=== PATIENT | male | born 1955 | race Caucasian/White ===

== ENCOUNTER 2023-06-10 10:17 | Emergency (ER) | payer MEDICARE ==
[2023-06-10 10:55] LABS: BASOPHILS ABSOLUTE AUTO 0.03 K/uL (0.00-0.10); BASOPHILS PERCENT AUTO 0.3 % (0.1-1.3); EOSINOPHILS ABSOLUTE AUTO 0.01 K/uL (0.00-0.40); EOSINOPHILS PERCENT AUTO 0.1 % (0.0-5.4); HEMATOCRIT 40.9 % (38.4-49.7); IMMATURE GRAN ABSOLUTE AUTO 0.03 K/uL (0.00-0.23); IMMATURE GRAN PERCENT AUTO 0.3 % (0.0-0.7); LYMPHOCYTES ABSOLUTE AUTO 0.53 K/uL (0.8-3.3); LYMPHOCYTES PERCENT AUTO 5.2 % (11.4-47.7); MEAN CORPUSCULAR HGB CONC 34.2 g/dL (31.6-35.5); MEAN CORPUSCULAR VOLUME 93.4 fL (81.4-99.0); MONOCYTES ABSOLUTE AUTO 0.66 K/uL (0.20-0.90); MONOCYTES PERCENT AUTO 6.5 % (3.3-12.6); NEUTROPHILS ABSOLUTE AUTO 8.88 K/uL (1.0-7.6); NEUTROPHILS PERCENT AUTO 87.6 % (40.0-78.1); PLATELET COUNT,PLT 222 K/uL (130-375); RED BLOOD CELL COUNT 4.38 M/uL (4.14-5.76); WHITE BLOOD CELL COUNT,WBC 10.1 K/uL (3.2-11.0)
[2023-06-10 11:20] LABS: CALCIUM 9.1 mg/dL (8.5-10.1); CREATININE 1.4 mg/dL (0.8-1.3); EST CRCL DRUG DOSING (CG) 49.52 mL/min
[2023-06-10 11:23] LABS: TROPONIN I HIGH SENSITIVITY 196.6 pg/mL (<=60.3)
[2023-06-10] MEDS ORDERED: Sodium Chloride 0.9% 1,000 ML IV ONE (11:43)
[2023-06-10] MEDS ORDERED: Iopamidol 612 MG/ML 100 ML Bottle IV SCH (12:00)
[2023-06-10] MEDS ORDERED: Sodium Chloride 0.9% 50 ML IV SCH (12:00)
[2023-06-10] MEDS ORDERED: Aspirin 81 MG Tab.Chew PO ONE (13:45)
[2023-06-10 14:51] LABS: APPEARANCE,URINE CLOUDY (CLEAR); BILIRUBIN,URINE NEGATIVE (NEGATIVE); COLOR,URINE YELLOW (YELLOW); GLUCOSE,URINE NEGATIVE (NEGATIVE); KETONES,URINE TRACE mg/dL (NEGATIVE); LEUKOCYTE ESTERASE,URINE NEGATIVE (NEGATIVE); NITRITE,URINE NEGATIVE (NEGATIVE); OCCULT BLOOD,URINE MODERATE (NEGATIVE); PH,URINE 5.5 (5.0-8.0); PROTEIN,URINE NEGATIVE (NEGATIVE); UROBILINOGEN,URINE 0.2 EU/dL (0.2-1.0)
[2023-06-10 14:59] LABS: AMORPHOUS SEDIMENT,URINE NOT SEEN; BACTERIA,URINE FEW; EPITHELIAL CELLS,URINE FEW; MUCUS,URINE RARE; RBC,URINE 20-30 (0-5); WBC,URINE 0-5 (0-5)
== END 2023-06-10 15:01 ==
LOC: JP.ED 10:17
DX: K92.2 Gastrointestinal hemorrhage, unspecified (principal); R33.9 Retention of urine, unspecified; R79.89 Other specified abnormal findings of blood chemistry
CPT/HCPCS: 36415; 51702; 71260; 74177; 80048; 81001; 83605; 84484; 85025; 86140; 93005; 96360; 99285; A9270; J3490; J7030; Q9967

== ENCOUNTER 2023-06-21 19:03 | Emergency (ER) | payer MEDICARE ==
[2023-06-21 19:31] LABS: APPEARANCE,URINE SLIGHTLY CLOUDY (CLEAR); BILIRUBIN,URINE NEGATIVE (NEGATIVE); COLOR,URINE YELLOW (YELLOW); GLUCOSE,URINE NEGATIVE (NEGATIVE); KETONES,URINE NEGATIVE (NEGATIVE); LEUKOCYTE ESTERASE,URINE TRACE (NEGATIVE); NITRITE,URINE POSITIVE (NEGATIVE); OCCULT BLOOD,URINE MODERATE (NEGATIVE); PH,URINE 5.5 (5.0-8.0); PROTEIN,URINE NEGATIVE (NEGATIVE); UROBILINOGEN,URINE 0.2 EU/dL (0.2-1.0)
[2023-06-21 19:38] LABS: AMORPHOUS SEDIMENT,URINE NOT SEEN; BACTERIA,URINE MANY; EPITHELIAL CELLS,URINE RARE; MUCUS,URINE NOT SEEN
== END 2023-06-21 20:40 | disposition home or self-care (01) ==
LOC: JP.ED 19:03
DX: N40.1 Benign prostatic hyperplasia with lower urinary tract symptoms (principal); R33.9 Retention of urine, unspecified; R97.20 Elevated prostate specific antigen [PSA]; N30.00 Acute cystitis without hematuria; Z79.899 Other long term (current) drug therapy
CPT/HCPCS: 51702; 81001; 87086; 87088; 87186; 99283

== ENCOUNTER 2023-07-24 12:20 | Emergency (ER) | payer MEDICARE | END 2023-07-24 14:44 | disposition home or self-care (01) | LOC: JP.ED 12:20 | DX: T83.038A Leakage of other urinary catheter, initial encounter (principal); F17.210 Nicotine dependence, cigarettes, uncomplicated; Z79.899 Other long term (current) drug therapy | CPT/HCPCS: 99282; 99283 ==

== ENCOUNTER 2023-10-29 09:02 | Emergency (ER) | payer MEDICARE, MEDICAID ==
[2023-10-29] MEDS: Lactated Ringers 1,000 ML IV SCH (10:00)
[2023-10-29] MEDS: Ondansetron 4 MG/2 ML SDV IVPUSH ONE (10:01)
[2023-10-29] MEDS: fentaNYL 100 MCG/2 ML SDV IVPUSH ONE (10:02)
[2023-10-29 10:10] LABS: BASOPHILS ABSOLUTE AUTO 0.03 K/uL (0.00-0.10); BASOPHILS PERCENT AUTO 0.2 % (0.1-1.3); EOSINOPHILS ABSOLUTE AUTO 0.32 K/uL (0.00-0.40); EOSINOPHILS PERCENT AUTO 2.5 % (0.0-5.4); HEMATOCRIT 38.6 % (38.4-49.7); IMMATURE GRAN ABSOLUTE AUTO 0.07 K/uL (0.00-0.23); IMMATURE GRAN PERCENT AUTO 0.6 % (0.0-0.7); LYMPHOCYTES ABSOLUTE AUTO 0.43 K/uL (0.8-3.3); LYMPHOCYTES PERCENT AUTO 3.4 % (11.4-47.7); MEAN CORPUSCULAR HEMOGLOBIN 31.6 pg (31.6-35.5); MEAN CORPUSCULAR HGB CONC 33.7 g/dL (31.6-35.5); MEAN CORPUSCULAR VOLUME 93.9 fL (81.4-99.0); MONOCYTES ABSOLUTE AUTO 0.97 K/uL (0.20-0.90); MONOCYTES PERCENT AUTO 7.7 % (3.3-12.6); NEUTROPHILS PERCENT AUTO 85.6 % (40.0-78.1); PLATELET COUNT,PLT 280 K/uL (130-375); RED BLOOD CELL COUNT 4.11 M/uL (4.14-5.76); WHITE BLOOD CELL COUNT,WBC 12.6 K/uL (3.2-11.0)
[2023-10-29 10:31] LABS: A/G RATIO 0.5 (1.2-2.2); ALANINE AMINOTRANSFERASE,ALT 13 U/L (12-78); ALBUMIN 2.4 g/dL (3.4-5.0); ALKALINE PHOSPHATASE 76 U/L (46-116); ASPARTATE AMNIOTRANSFERASE,AST 12 U/L (15-37); BILIRUBIN TOTAL 0.7 mg/dL (0.2-1.0); BLOOD UREA NITROGEN,BUN 21 mg/dL (7-18); CALCIUM 8.9 mg/dL (8.5-10.1); CARBON DIOXIDE,CO2 28 mmol/L (21-32); CHLORIDE,CL 100 mmol/L (100-108); CREATININE 1.1 mg/dL (0.8-1.3); EST CRCL DRUG DOSING (CG) 56.93 mL/min; ESTIMATED GFR 73 mL/min (>60); GLUCOSE RANDOM 125 mg/dL (74-106); POTASSIUM,K 4.3 mmol/L (3.6-5.2); PROTEIN TOTAL,TP 7.1 g/dL (6.4-8.2); SODIUM,NA 137 mmol/L (140-148)
[2023-10-29 10:33] LABS: LACTIC ACID 0.9 mmol/L (0.4-2.0)
[2023-10-29 10:40] LABS: ANION GAP 13.3 mmol/L (5.0-14.0); C-REACTIVE PROTEIN 25.52 mg/dL (<0.50)
[2023-10-29] MEDS: HYDROmorphone 1 MG/ML Syringe IVPUSH ONE (11:00)
[2023-10-29] MEDS: Sodium Chloride 0.9% 10 ML Syringe FLUSH PRN (11:35)
[2023-10-29] MEDS: Sodium Chloride 0.9% 80 ML IV SCH (11:35)
[2023-10-29] MEDS: Iopamidol 612 MG/ML 100 ML Bottle IV PRN (11:35)
[2023-10-29 11:55] LABS: APPEARANCE,URINE CLOUDY (CLEAR); BILIRUBIN,URINE NEGATIVE (NEGATIVE); COLOR,URINE YELLOW (YELLOW); GLUCOSE,URINE NEGATIVE (NEGATIVE); KETONES,URINE NEGATIVE (NEGATIVE); LEUKOCYTE ESTERASE,URINE TRACE (NEGATIVE); NITRITE,URINE NEGATIVE (NEGATIVE); OCCULT BLOOD,URINE LARGE (NEGATIVE); PH,URINE 7.5 (5.0-8.0); PROTEIN,URINE 100 mg/dL (NEGATIVE); UROBILINOGEN,URINE 0.2 EU/dL (0.2-1.0)
[2023-10-29 12:03] LABS: AMORPHOUS SEDIMENT,URINE FEW; BACTERIA,URINE MANY; EPITHELIAL CELLS,URINE FEW; MUCUS,URINE MODERATE; RBC,URINE 30-40 (0-5); WBC,URINE 40-50 (0-5)
[2023-10-29 12:14] LABS: CORONAVIRUS COVID-19 NAA NEGATIVE (NEGATIVE); INFLUENZA A NAA NEGATIVE (NEGATIVE); INFLUENZA B NAA NEGATIVE (NEGATIVE); RESPIRATORY SYNCYTIAL VIR NAA NEGATIVE (NEGATIVE)
[2023-10-29] MEDS: HYDROmorphone 0.5 MG/0.5 ML Syringe IVPUSH ONE (12:16)
[2023-10-29] MEDS: LORazepam 2 MG/ML SDV IVPUSH ONE ×2 (12:19→14:46)
[2023-10-29] MEDS: Acetaminophen 325 MG Tab PO ONE (12:21)
[2023-10-29] MEDS: Lidocaine 4% Top Soln 50 ML Bottle MUCMEM ONE (12:28)
[2023-10-29] MEDS ORDERED: Lactated Ringers 1,000 ML IV ONE (12:39)
[2023-10-29] MEDS ORDERED: levETIRAcetam 500 MG/5 ML SDV IVPUSH ONE (14:05)
[2023-10-29] MEDS: levETIRAcetam in NaCl (iso-os) 1,500 MG in Premix Bag 100 BAG IV ONE (14:36)
[2023-10-29] MEDS: cefTRIAXone 1 GM in Sodium Chloride 0.9% 50 ML IV SCH (14:37)
== END 2023-10-29 15:00 ==
LOC: JP.ED 09:02
DX: G89.18 Other acute postprocedural pain (principal); K56.7 Ileus, unspecified; Z79.899 Other long term (current) drug therapy
CPT/HCPCS: 0241U; 36415; 43752; 71045; 74018; 74177; 80053; 81001; 83605; 84145; 85025; 86140; 87040; 96374; 96375; 96376; 99285; A9270; J1170; J2060; J2405; J3010; J3490; J7120; Q9967

== ENCOUNTER 2024-02-06 09:54 | Inpatient (IN) | payer MEDICARE, MEDICAID ==
[2024-02-06 10:47] LABS: BASOPHILS ABSOLUTE AUTO 0.07 K/uL (0.00-0.10); BASOPHILS PERCENT AUTO 0.8 % (0.1-1.3); EOSINOPHILS ABSOLUTE AUTO 0.14 K/uL (0.00-0.40); EOSINOPHILS PERCENT AUTO 1.7 % (0.0-5.4); HEMATOCRIT 31.5 % (38.4-49.7); HEMOGLOBIN 10.3 g/dL (12.9-16.9); IMMATURE GRAN ABSOLUTE AUTO 0.04 K/uL (0.00-0.23); IMMATURE GRAN PERCENT AUTO 0.5 % (0.0-0.7); LYMPHOCYTES ABSOLUTE AUTO 0.91 K/uL (0.8-3.3); MEAN CORPUSCULAR HEMOGLOBIN 30.9 pg (31.6-35.5); MEAN CORPUSCULAR HGB CONC 32.7 g/dL (31.6-35.5); MEAN CORPUSCULAR VOLUME 94.6 fL (81.4-99.0); MONOCYTES ABSOLUTE AUTO 0.72 K/uL (0.20-0.90); MONOCYTES PERCENT AUTO 8.7 % (3.3-12.6); NEUTROPHILS ABSOLUTE AUTO 6.38 K/uL (1.0-7.6); NEUTROPHILS PERCENT AUTO 77.3 % (40.0-78.1); PLATELET COUNT,PLT 282 K/uL (130-375); RED BLOOD CELL COUNT 3.33 M/uL (4.14-5.76); WHITE BLOOD CELL COUNT,WBC 8.3 K/uL (3.2-11.0)
[2024-02-06 11:08] LABS: A/G RATIO 0.6 (1.2-2.2); ALANINE AMINOTRANSFERASE,ALT 15 U/L (12-78); ALBUMIN 2.7 g/dL (3.4-5.0); ALKALINE PHOSPHATASE 80 U/L (46-116); ASPARTATE AMNIOTRANSFERASE,AST 14 U/L (15-37); BILIRUBIN TOTAL 0.3 mg/dL (0.2-1.0); BLOOD UREA NITROGEN,BUN 18 mg/dL (7-18); CALCIUM 8.7 mg/dL (8.5-10.1); CARBON DIOXIDE,CO2 26 mmol/L (21-32); CHLORIDE,CL 104 mmol/L (100-108); CREATININE 1.2 mg/dL (0.8-1.3); EST CRCL DRUG DOSING (CG) 52.18 mL/min; ESTIMATED GFR 65 mL/min (>60); GLUCOSE RANDOM 83 mg/dL (74-106); POTASSIUM,K 3.8 mmol/L (3.6-5.2); PROTEIN TOTAL,TP 7.2 g/dL (6.4-8.2); SODIUM,NA 138 mmol/L (140-148)
[2024-02-06 11:10] LABS: ANION GAP 11.8 mmol/L (5.0-14.0)
[2024-02-06] MEDS: Ketorolac 30 MG/ML SDV IM ONE (11:26)
[2024-02-06] MEDS: fentaNYL 100 MCG/2 ML SDV IM ONE (12:30)
[2024-02-06] MEDS: HYDROmorphone 0.5 MG/0.5 ML Syringe IVPUSH ONE (15:11)
[2024-02-06] MEDS: Sodium Chloride 0.9% 10 ML Syringe FLUSH PRN (15:17)
[2024-02-06] MEDS ORDERED: Ondansetron 4 MG Tab.DIS PO PRN (16:17)
[2024-02-06] MEDS ORDERED: Morphine 2 MG/ML SYRINGE IVPUSH PRN (16:17)
[2024-02-06] MEDS ORDERED: Sennosides/Docusate Sodium 50-8.6 MG Tab PO PRN (16:17)
[2024-02-06] MEDS ORDERED: Zolpidem 5 MG Tab PO PRN (16:17)
[2024-02-06 16:34] LABS: MAGNESIUM 1.9 mg/dL (1.8-2.4); PHOSPHORUS 2.8 mg/dL (2.5-4.9)
[2024-02-06] MEDS: Lactated Ringers 1,000 ML IV SCH (17:28)
[2024-02-06] MEDS ORDERED: Ketorolac 30 MG/ML SDV IM PRN (18:00)
[2024-02-06] MEDS: Cyclobenzaprine 10 MG Tab PO PRN (20:08)
[2024-02-06] MEDS: Acetaminophen 325 MG Tab PO PRN (20:08)
[2024-02-06] MEDS: levETIRAcetam 250 MG Tab PO SCH (20:08)
[2024-02-06] MEDS ORDERED: Non-Formulary Medication 1 Each (Levetiracetam [Keppra] 500 MG Tablet) PO SCH (21:00)
[2024-02-07] MEDS: Acetaminophen/oxyCODONE 325-5 MG Tab PO PRN (03:48)
[2024-02-07 04:16] LABS: HEMATOCRIT 33.7 % (38.4-49.7); HEMOGLOBIN 10.9 g/dL (12.9-16.9); MEAN CORPUSCULAR HEMOGLOBIN 30.5 pg (31.6-35.5); MEAN CORPUSCULAR HGB CONC 32.3 g/dL (31.6-35.5); MEAN CORPUSCULAR VOLUME 94.4 fL (81.4-99.0); RED BLOOD CELL COUNT 3.57 M/uL (4.14-5.76); WHITE BLOOD CELL COUNT,WBC 7.1 K/uL (3.2-11.0)
[2024-02-07 04:32] LABS: CALCIUM 8.9 mg/dL (8.5-10.1); CREATININE 1.1 mg/dL (0.8-1.3); EST CRCL DRUG DOSING (CG) 53.16 mL/min
[2024-02-07 04:33] LABS: INR 1.1; PROTHROMBIN TIME 10.8 sec (9.2-10.6)
[2024-02-07] MEDS ORDERED: fentaNYL 100 MCG/2 ML SDV ONE (08:21)
[2024-02-07] MEDS ORDERED: Propofol 200 MG/20 ML SDV ONE (08:24)
[2024-02-07] MEDS ORDERED: Bupivacaine 0.5%/EPINEPHrine 1:200,000 50 ML MDV ONE (08:39)
[2024-02-07] MEDS ORDERED: Acetaminophen/HYDROcodone 325-5 MG Tab PO PRN ×2 (10:22→10:23)
[2024-02-07] MEDS: Enoxaparin 40 MG/0.4 ML Syringe SUBCUT SCH (10:50)
== END 2024-02-07 14:25 | disposition home or self-care (01) | DRG 509 ==
LOC: JP.ED 09:54 → JP.MS 16:17
PROVIDERS: ADMIT Internal Medicine; ATTEND Internal Medicine
PROC: 0SJ94ZZ Inspection of Right Hip Joint, Percutaneous Endoscopic Approach (ICD-10-PCS; principal; 2024-02-07 09:30)
DX: M85.30 Osteitis condensans, unspecified site (principal); M25.551 Pain in right hip; F17.210 Nicotine dependence, cigarettes, uncomplicated; M86.9 Osteomyelitis, unspecified; G40.909 Epilepsy, unspecified, not intractable, without status epilepticus; R79.89 Other specified abnormal findings of blood chemistry; Z79.899 Other long term (current) drug therapy; Z87.19 Personal history of other diseases of the digestive system; Z98.890 Other specified postprocedural states
CPT/HCPCS: 36415; 72192 ×2; 73502 ×2; 80053; 83605; 83735; 84100; 85025; 85379; 86140; 96372; 96374; 99285; J1170; J1885; J3010; J3490; 76000; 80048; 84443; 85027; 85610; 85651; 97161-GP; 99222; 99239; A9270-GY; J1650; J2704; J7120

== ENCOUNTER 2024-02-19 07:33 | Inpatient (IN) | payer MEDICARE, MEDICAID ==
[2024-02-19 07:57] LABS: HEMATOCRIT 34.2 % (38.4-49.7); HEMOGLOBIN 11.2 g/dL (12.9-16.9); MEAN CORPUSCULAR HEMOGLOBIN 30.4 pg (31.6-35.5); MEAN CORPUSCULAR HGB CONC 32.7 g/dL (31.6-35.5); MEAN CORPUSCULAR VOLUME 92.9 fL (81.4-99.0); RED BLOOD CELL COUNT 3.68 M/uL (4.14-5.76); WHITE BLOOD CELL COUNT,WBC 6.1 K/uL (3.2-11.0)
[2024-02-19] MEDS: Lactated Ringers 1,000 ML IV SCH ×2 (08:01→11:41)
[2024-02-19] MEDS: Nozin Nasal Sanitizer NASBOTH SCH (08:06)
[2024-02-19 08:22] LABS: A/G RATIO 0.5 (1.2-2.2); ALANINE AMINOTRANSFERASE,ALT 20 U/L (12-78); ALBUMIN 2.7 g/dL (3.4-5.0); ALKALINE PHOSPHATASE 99 U/L (46-116); ANION GAP 8.5 mmol/L (5.0-14.0); ASPARTATE AMNIOTRANSFERASE,AST 14 U/L (15-37); BILIRUBIN TOTAL 0.2 mg/dL (0.2-1.0); BLOOD UREA NITROGEN,BUN 23 mg/dL (7-18); C-REACTIVE PROTEIN 2.19 mg/dL (<0.50); CALCIUM 9.2 mg/dL (8.5-10.1); CARBON DIOXIDE,CO2 30 mmol/L (21-32); CHLORIDE,CL 104 mmol/L (100-108); CREATININE 1.3 mg/dL (0.8-1.3); EST CRCL DRUG DOSING (CG) 39.57 mL/min; ESTIMATED GFR 59 mL/min (>60); GLUCOSE RANDOM 100 mg/dL (74-106); PROTEIN TOTAL,TP 8.4 g/dL (6.4-8.2); SODIUM,NA 142 mmol/L (140-148)
[2024-02-19] MEDS ORDERED: fentaNYL 100 MCG/2 ML SDV ONE ×2 (09:23→09:36)
[2024-02-19] MEDS ORDERED: Propofol 200 MG/20 ML SDV ONE (09:23)
[2024-02-19] MEDS ORDERED: Midazolam 1 MG/ML 2 ML SDV ONE (09:23)
[2024-02-19] MEDS ORDERED: Ondansetron 4 MG/2 ML SDV IVPUSH PRN (09:28)
[2024-02-19] MEDS ORDERED: Morphine 2 MG/ML SYRINGE IVPUSH PRN (09:28)
[2024-02-19] MEDS: ceFAZolin 2 GM in Premix Bag 1 BAG IV ONE (09:29)
[2024-02-19] MEDS ORDERED: Dexamethasone 4 MG/ML SDV ONE (09:45)
[2024-02-19] MEDS ORDERED: Ondansetron 4 MG/2 ML SDV ONE (09:45)
[2024-02-19] MEDS ORDERED: Ketorolac 30 MG/ML SDV ONE (10:13)
[2024-02-19] MEDS: Bupivacaine 0.25%/EPINEPHrine 1:200,000 30 ML SDV ONE (10:16)
[2024-02-19] MEDS: oxyCODONE 5 MG Tab PO PRN (11:31)
[2024-02-19] MEDS: Acetaminophen 325 MG Tab PO SCH (15:28)
[2024-02-19] MEDS ORDERED: Nozin Nasal Sanitizer NASBOTH SCH (21:00)
[2024-02-20 08:22] LABS: CREATININE 1.1 mg/dL (0.8-1.3); EST CRCL DRUG DOSING (CG) 46.76 mL/min; VANCOMYCIN RANDOM 16.7 ug/mL (0.0-50.0)
[2024-02-20] MEDS: oxyCODONE 5 MG Tab PO PRN (16:52)
[2024-02-21 12:14] LABS: CREATININE 0.9 mg/dL (0.8-1.3); EST CRCL DRUG DOSING (CG) 65.7 mL/min
[2024-02-21] MEDS: levETIRAcetam 250 MG Tab PO SCH (21:02)
[2024-02-22 08:24] LABS: EST CRCL DRUG DOSING (CG) 59.13 mL/min; VANCOMYCIN RANDOM 12.6 ug/mL (0.0-50.0)
[2024-02-22] MEDS: Docusate Sodium 100 MG Cap PO PRN (09:35)
== END 2024-02-22 14:45 | disposition home or self-care (01) | DRG 502 ==
LOC: JP.SDS 07:33 → JP.MS 09:28 → JP.SDS 02-20 16:31
PROVIDERS: ADMIT Specialist; ATTEND Specialist
PROC: 0QD20ZZ Extraction of Right Pelvic Bone, Open Approach (ICD-10-PCS; 2024-02-19)
PROC: 02HV33Z Insertion of Infusion Device into Superior Vena Cava, Percutaneous Approach (ICD-10-PCS; principal; 2024-02-22)
DX: M86.68 Other chronic osteomyelitis, other site (principal); B95.62 Methicillin resistant Staphylococcus aureus infection as the cause of diseases classified elsewhere; F17.200 Nicotine dependence, unspecified, uncomplicated
CPT/HCPCS: 01120-QZ; 36415; 71045; 80053; 80202; 82565; 85027; 85651; 86140; 87070; 87075; 87186; 87205; 88307; 93005; 93010; 97110-GP; 97161-GP; 97165-GO; 97530-GP; A9270-GY; C1751; J0690; J1100; J1885; J2250; J2405; J2704; J3010; J3370; J7050; J7120